=== PATIENT | male | born 1965 | race Caucasian/White ===

== ENCOUNTER 2023-08-11 16:30 | Outpatient (CLI) | payer OTHER, SELFPAY | END 2023-08-11 16:31 | disposition home or self-care (01) | LOC: SLEEP 08-16 08:39 | PROVIDERS: PCP Family Medicine; Visit Provider Family Medicine | DX: G47.19 Other hypersomnia (principal); G47.30 Sleep apnea, unspecified; R00.2 Palpitations; R53.83 Other fatigue; E78.5 Hyperlipidemia, unspecified; I10 Essential (primary) hypertension | CPT/HCPCS: G0399 ==